=== PATIENT | female | born 1990 | race Caucasian/White ===

== ENCOUNTER → 2018-09-06 | Outpatient (CLI) | payer OTHER ==
--- NOTE | 2018-09-06 09:17 | XR ---
Thoracic spine HISTORY: Chronic back pain 3 views of the thoracic spine Thoracic vertebral bodies show preserved height, alignment, and bone mineralization. Disc spaces are remarkable for some mild disc height loss in the mid to lower thoracic spine levels. There is mild mu ltilevel spondylosis. Degenerative disc changes are present in the visualized cervical spine. IMPRESSION: Degenerative disc disease.
--- NOTE | 2018-09-06 09:19 | XR ---
Lumbar spine HISTORY: Low back pain 3 views of the lumbar spine There is mild spinal curvature present centered at approximately T12. Intrauterine contraceptive rosanna ce is present over the pelvis. Lumbar vertebral bodies show preserved height and bone mineralization. There is mild spondylosis at the lower lumbar spine with some accentuation of lumbar lordosis, loss of disc height L3-4, L4-5 and L5-S1. Sclerosis present in the posterior elements compatible with face t arthropathy. Radiopaque foreign body likely represents jewelry seen over the lateral exam, correlat e. IMPRESSION: Degenerative disc disease, facet arthropathy. Mild spinal curvature. Additional foreign b odies as described.
== END | disposition home or self-care (01) ==
LOC: LABWHC1 08:52
PROVIDERS: ATTEND Physician Assistant Medical
DX: M51.36 Other intervertebral disc degeneration, lumbar region (principal); M51.34 Other intervertebral disc degeneration, thoracic region; M46.96 Unspecified inflammatory spondylopathy, lumbar region; M54.5 Low back pain
CPT/HCPCS: 72070; 72072; 72100

== ENCOUNTER 2019-09-16 17:49 | Emergency (ER) | payer OTHER ==
[2019-09-16 18:17] VITALS: BP 117/78; PULSE 87; RESP 18; TEMP 98
[2019-09-16] MEDS ORDERED: TOPICAL SKIN ADHESIVE 1 EACH AMP TOPICAL ONE (18:29)
--- NOTE | 2019-09-16 18:44 | ED ---
Upper Extremity HPI - General Chief Complaint: Extremity Injury, Upper Stated Complaint: finger injury-[facility] Time Seen by Provider: 09/16/19 18:19 Source: patient Mode of arrival: ambulatory Limitations: no limitations - History of Present Illness Initial Comments: Patient is a 29-year-old female presenting to the emergency Department with complaints of an injury to her left index finger. Patient states she was working and got her finger smashed in a press. Patient states she has a small cut to her finger as well. Patient's tetanus vaccine is up-to-date. She states the pain has been increasing since an injury. She denies being on blood thinners. She denies any previous injuries to this finger or hand. She has no further complaints at this time. - Related Data Home Medications Medication Instructions Recorded Confirmed Methadone HCl [Methadone Intensol] 72 mg PO DAILY 09/28/18 09/28/18 Allergies Allergy/AdvReac Type Severity Reaction Status Date / Time No Known Allergies Allergy Verified 09/16/19 18:16 Review of Systems ROS Statement: Those systems with pertinent positive or pertinent negative responses have been documented in the HPI. ROS Other: All systems not noted in ROS Statement are negative. Past Medical History Past Medical History: No Reported History History of Any Multi-Drug Resistant Organisms: None Reported Past Surgical History: No Surgical Hx Reported Past Psychological History: No Psychological Hx Reported Smoking Status: Current every day smoker Past Alcohol Use History: None Reported Past Drug Use History: None Reported General Exam - General Exam Comments Initial Comments: GENERAL: Well-appearing, well-nourished and in no acute distress. HEAD: Atraumatic, normocephalic. EYES: Pupils equal round and reactive to light, extraocular movements intact, sclera anicteric, conjunctiva are normal. ENT: TMs normal, nares patent, oropharynx clear without exudates. Moist mucous membranes. NECK: Normal range of motion, supple without lymphadenopathy or JVD. LUNGS: Breath sounds clear to auscultation bilaterally and equal. No wheezes rales or rhonchi. HEART: Regular rate and rhythm without murmurs, rubs or gallops. ABDOMEN: Soft, nontender, normoactive bowel sounds. No guarding, no rebound. No masses appreciated. : Deferred EXTREMITIES: Pain with palpation of the distal end of the left index finger, there is a small, 0.5cm superficial laceration to the area as well. Neurovascular intact. Full range of motion. No pitting or edema. No clubbing or cyanosis. NEUROLOGICAL: Normal speech, normal gait. PSYCH: Normal mood, normal affect. SKIN: Warm, Dry, normal turgor, no rashes or lesions noted. Limitations: no limitations Course Vital Signs 09/16/19 18:14 Temperature 98 F Pulse Rate 87 Respiratory 18 Rate Blood Pressure 117/78 O2 Sat by Pulse 100 Oximetry Procedures - Laceration Laceration #1 Consent Obtained: verbal consent Indication: laceration Site: hand Size (cm): 0 (0.5cm) Description: linear Depth: simple, single layer (Skin glue was applied to the wound.) Medical Decision Making - Medical Decision Making Patient is a 29-year-old female here with a crush injury to her left index finger, distal end. X-rays reveal no acute fractures dislocations. This is a contusion injury. 0.5 cm superficial laceration requires no sutures, closed with topical skin glue. Patient's tetanus is up-to-date. Patient is stable for discharge. She is in agreement with this plan of care. Disposition Clinical Impression: Crushing injury of left index finger, Laceration of left index finger Disposition: HOME SELF-CARE Condition: Stable Instructions (If sedation given, give patient instructions): Laceration (ED) Additional Instructions: Please return to the Emergency Department if symptoms worsen or any other concerns. Keep wound clean and dry. May take Motrin for discomfort. Is patient prescribed a controlled substance at d/c from ED?: No Referrals: None,Stated [Primary Care Provider] - 1-2 days
--- NOTE | 2019-09-16 18:53 | XR ---
EXAMINATION TYPE: XR finger LT DATE OF EXAM: 09/16/2019 COMPARISON: NONE HISTORY: Finger pain TECHNIQUE: 3 views FINDINGS: I see no fracture nor dislocation. Joint spaces are normal. There are no pathologic calcifi cations. IMPRESSION: Negative left index finger exam.
== END 2019-09-16 19:19 | disposition home or self-care (01) ==
LOC: EC 17:49
DX: S67.191A Crushing injury of left index finger, initial encounter (principal); S61.211A Laceration without foreign body of left index finger without damage to nail, initial encounter; F17.200 Nicotine dependence, unspecified, uncomplicated; Z79.891 Long term (current) use of opiate analgesic; W23.0XXA Caught, crushed, jammed, or pinched between moving objects, initial encounter; Y93.89 Activity, other specified; Y92.69 Other specified industrial and construction area as the place of occurrence of the external cause; Y99.0 Civilian activity done for income or pay
CPT/HCPCS: 12001; 99283